=== PATIENT | male | born 1990 | race Caucasian/White ===

== ENCOUNTER 2022-01-25 10:43 | Inpatient (IN) | payer SELFPAY ==
[2022-01-25] VITALS (16 sets, daily range): BP systolic 100–122; BP diastolic 56–73; PULSE 86–119; RESP 14–20; TEMP 36.1–39.4; O2SAT 96–100; BMI 25.5; BMI 24.9
--- NOTE | 2022-01-25 10:50 | DI.RAD.S_ITS ---
PROCEDURE: XR CHEST 1V INDICATIONS: suspected sepsis TECHNIQUE: One view of the chest was acquired. COMPARISON: None. FINDINGS: Surgical changes and devices: None. Lungs and pleura: Lungs are clear. No pleural effusions or pneumothorax. Mediastinum: Mediastinal contours appear normal. Heart size is normal. Bones and chest wall: No suspicious bony lesions. Overlying soft tissues appear unremarkable. IMPRESSION: No acute cardiopulmonary pathology. Dictated by: Tapan Minor M.D. on 01/25/2022 at 12:14 Approved by: Tapan Minor M.D. on 01/25/2022 at 12:18
[2022-01-25] MEDS: SODIUM CHLORIDE 0.9% 1,000 ML 1000 ML IV (11:07)
[2022-01-25 11:31] LABS: Add Manual Diff / Slide Review NO; Basophils Absolute Auto 0 /uL (0-100); Basophils Percent Auto 0.2 % (0-2); Eosinophils Absolute Auto 0 /uL (0-450); Hematocrit 41.7 % (41-53); Hemoglobin 14.3 g/dL (13.5-17.5); Lymphocytes Absolute Auto 500 /uL (1100-4500); Lymphocytes Percent Auto 2.8 % (25-40); Mean Corpuscular HGB Conc 34.4 % (30-36); Mean Corpuscular Hemoglobin 29.2 PG (26-34); Mean Corpuscular Volume 84.8 fL (80-100); Monocytes Absolute Auto 1000 /uL (0-900); Monocytes Percent Auto 6.3 % (3-14); Neutrophils Absolute Auto 14800 /uL (1500-7000); Neutrophils Percent Auto 90.7 % (50-75); Platelet Count 222 X10^3/uL (150-400); Red Blood Cell Count 4.91 X10^6/uL (4.5-5.9); Red Cell Distribution Width 13.1 % (11.6-14.8); White Blood Cell Count 16.3 X10^3/uL (4.5-11.0)
--- NOTE | 2022-01-25 11:35 | ED_ITS ---
HPI - Abdominal Pain General Chief Complaint: Abdominal Pain Stated Complaint: Abd pain- sent by [facility] Time Seen by Provider: 01/25/22 11:03 Source: patient Mode of arrival: Ambulatory History of Present Illness HPI narrative: Patient is a 31-year-old healthy male who presents with 3 days of abdominal pain. States that his is temperature has been high and low he is currently febrile. Pain is not really localized she said it started high and then has been low. He went to a walk-in clinic initially he thought he had a ruptured appendix and sent here for further evaluation. He according to walk-in records he had significant rebound tenderness patient says that the right over did not hurt. He has had decreased appetite no real nausea or vomiting. Currently noted to be febrile tachycardic. Related Data Home Medications Medication Instructions Recorded Confirmed MULTIVITAMIN (DAILY MULTIPLE 1 tab PO Q DAY ##0 11/26/10 01/25/22 VITAMINS) Allergies Allergy/AdvReac Type Severity Reaction Status Date / Time amoxicillin Allergy Unknown Verified 01/25/22 15:13 Review of Systems Review of Systems Narrative: GENERAL: + fever HEENT: Denies sinus pain, ear pain, sore throat, difficulty swallowing, neck pain RESPIRATORY: Denies dyspnea, cough, wheezing, hemoptysis, sputum. CARDIOVASCULAR: Denies chest pain, palpitations, orthopnea, edema GASTROINTESTINAL: See HPI : Denies dysuria, frequency, incontinence, hematuria, urinary retention, flank pain. MUSCULOSKELETAL: Denies weakness, joint pain, or bony pain SKIN: No rash, no erythema, no pruritus NEUROLOGIC: Denies weakness, dizziness, headache, numbness, change in speech, confusion PSYCHIATRIC: No concerning psychosocial issues. 12 point review of systems is negative except for those stated above and HPI Patient History Social History household members: significant other Smoking Status: Current every day smoker alcohol intake: current Smoking Status: Current every day smoker alcohol intake frequency: holidays/special occasions only Substance Use Type: does not use Exam Initial Vital Signs Initial Vital Signs: Vital Signs Temperature 102.2 F H 01/25/22 10:48 Pulse Rate 119 H 01/25/22 10:48 Respiratory Rate 18 01/25/22 10:48 Blood Pressure 122/73 01/25/22 10:48 Pulse Oximetry 99 01/25/22 10:48 Oxygen Delivery Method 01/25/22 10:48 GENERAL: Alert 31-year-old HEENT: Head atraumatic,EOMI, pupils reactive, face symmetric, dry mucous membrane CARDIOVASCULAR: Regular rate and rhythm without murmurs, rubs or gallops. RESPIRATORY: Breath sounds equal bilaterally, no wheezes rales or rhonchi. ABDOMEN: Soft, tender all cough lower abdomen minimal rebound EXTREMITIES: Normal range of motion, no clubbing or edema. Neurovascularly intact NEUROLOGICAL: Alert and oriented x4.Normal gait and speech. SKIN: Warm, dry, no laceration, no petechiae, no rashes or lesions. Course Orders Ordered: ED Orders 01/25/22 10:50 XR chest 1V Stat RT Consult Eval and Treat NOW 01/25/22 11:09 COVID19 -Nasal RAPID/Pre-Proc Stat 01/25/22 11:29 Complete Blood Count AUTO DIFF Stat Comprehensive Metabolic Panel Stat Lactate (Lactic Acid) Stat Lipase Stat Procalcitonin Stat 01/25/22 11:35 CT abdomen pelvis w con Stat Blood Culture Stat 01/25/22 14:00 Education, smoking cessation ONGOING 01/26/22 05:00 Complete Blood Count AUTO DIFF DAILY Acetaminophen (Acetaminophen 325 Mg Tablet) 650 mg PO Q6HR ANETTE Gabapentin (Gabapentin 300 Mg Capsule) 300 mg PO Q8HR ANETTE Dextrose/Lactated Ringer's (Dextrose 5%-Lactated Ringers) 1,000 mls @ 120 mls/hr IV CONT ANETTE Last Admin: 01/25/22 16:03 Dose: 120 mls/hr Documented By: AM Ceftriaxone Sodium 1,000 mg/ (Sodium Chloride) 100 mls @ 200 mls/hr IV DAILY ANETTE Metronidazole (Flagyl) 500 mg in 100 mls @ 100 mls/hr IV NOW ONE Stop: 01/25/22 21:59 Ketorolac Tromethamine (Ketorolac 30 Mg/Ml Vial) 30 mg IV Q6H ANETTE Stop: 01/28/22 13:59 Ondansetron HCl (Ondansetron 4 Mg/2 Ml Inj) 4 mg IV Q6HR ANETTE Oxycodone HCl (Oxycodone Ir 5 Mg Tablet) 5 mg PO Q4HR PRN PRN Reason: Pain, Severe (7-10) Discontinued Medications Acetaminophen (Acetaminophen 325 Mg Tablet) 975 mg PO NOW ONE Stop: 01/25/22 13:22 Last Admin: 01/25/22 13:59 Dose: 975 mg Documented By: KILO Sodium Chloride (Normal Saline 0.9%) 1,000 mls @ 1,000 mls/hr IV BOLUS ONE Stop: 01/25/22 11:49 Last Infusion: 01/25/22 13:53 Dose: 0 mls/hr Documented By: [facility] Admin: 01/25/22 11:07 Dose: 1,000 mls/hr Documented By: KILO Ceftazidime 2 gm/ Sodium (Chloride) 100 mls @ 100 mls/hr IV NOW ONE Stop: 01/25/22 11:37 Last Infusion: 01/25/22 13:19 Dose: 0 mls/hr Documented By: Admin: 01/25/22 11:43 Dose: 100 mls/hr Documented By: KILO Metronidazole (Flagyl) 500 mg in 100 mls @ 100 mls/hr IV NOW ONE Stop: 01/25/22 12:35 Last Infusion: 01/25/22 13:19 Dose: 0 mls/hr Documented By: Admin: 01/25/22 11:43 Dose: 100 mls/hr Documented By: KILO Ketorolac Tromethamine (Ketorolac 30 Mg/Ml Vial) 30 mg IV NOW ONE Stop: 01/25/22 11:36 Last Admin: 01/25/22 11:43 Dose: 30 mg Documented By: KILO Vital Signs Vital signs: Vital Signs - 8 hr 01/25/22 10:48 01/25/22 12:04 01/25/22 13:11 Temperature 102.2 F H 103 F H Pulse Rate 119 H 103 H Respiratory Rate 18 18 Blood Pressure 122/73 Pulse Oximetry 99 99 Oxygen Delivery Method Room Air 01/25/22 12:08 01/25/22 12:08 01/25/22 12:30 Temperature Pulse Rate 102 H 106 H Respiratory Rate Blood Pressure 122/62 Pulse Oximetry 99 97 Oxygen Delivery Method 01/25/22 13:00 01/25/22 13:08 01/25/22 13:09 Temperature Pulse Rate 102 H 105 H Respiratory Rate Blood Pressure 117/64 Pulse Oximetry 97 97 Oxygen Delivery Method 01/25/22 13:09 01/25/22 13:30 01/25/22 13:30 Temperature Pulse Rate 105 H 105 H Respiratory Rate Blood Pressure 119/60 Pulse Oximetry 97 100 Oxygen Delivery Method 01/25/22 13:59 01/25/22 14:00 01/25/22 14:00 Temperature 103 F H Pulse Rate 101 H Respiratory Rate Blood Pressure 119/57 L Pulse Oximetry 99 Oxygen Delivery Method MDM - Abdominal Pain Lab Data Result diagrams: 01/25/22 11:29 01/25/22 11:29 Labs: Lab Results 01/25/22 01/25/22 01/25/22 Range/Units 11:09 11:29 11:29 WBC 16.3 H (4.5-11.0) X10^3/uL RBC 4.91 (4.5-5.9) X10^6/uL Hgb 14.3 (13.5-17.5) g/dL Hct 41.7 (41-53) % MCV 84.8 (80-100) fL MCH 29.2 (26-34) PG MCHC 34.4 (30-36) % RDW 13.1 (11.6-14.8) % Plt Count 222 (150-400) X10^3/uL Neut % (Auto) 90.7 H (50-75) % Lymph % (Auto) 2.8 L (25-40) % [place] % (Auto) 6.3 (3-14) % Eos % (Auto) 0.0 L (2-4) % Baso % (Auto) 0.2 (0-2) % Neut # (Auto) 53801 H (0637-4176) /uL Lymph # (Auto) 500 L (8678-7533) /uL [place] # (Auto) 1000 H (0-900) /uL Eos # (Auto) 0 (0-450) /uL Baso # (Auto) 0 (0-100) /uL Sodium 138 (137-145) mmol/L Potassium 3.9 (3.4-5.1) mmol/L Chloride 98 (98-107) mmol/L Carbon Dioxide 26 (22-32) mmol/L BUN 12 (9-20) mg/dL Creatinine 0.90 (0.66-1.25) mg/dL Estimated GFR > 60 (>60) mL/min BUN/Creatinine Ratio 13.3 (6-22) Glucose 128 H (70-100) mg/dL Lactate (0.7-2.1) mmol/L Calcium 9.3 (8.4-10.2) mg/dL Total Bilirubin 1.1 (0.2-1.3) mg/dL AST 22 (17-59) IU/L ALT 27 (<50) IU/L Alkaline Phosphatase 61 (38-126) U/L Total Protein 8.4 H (6.3-8.2) g/dL Albumin 4.7 (3.5-5.0) g/dL Globulin 3.7 (1.7-4.1) g/dL Albumin/Globulin Ratio 1.3 (1.0-2.8) Lipase 28 (23-300) U/L Procalcitonin 0.16 (<0.5) ng/mL SARS-CoV-2 (PCR) Negative (Negative) 01/25/22 Range/Units 11:29 WBC (4.5-11.0) X10^3/uL RBC (4.5-5.9) X10^6/uL Hgb (13.5-17.5) g/dL Hct (41-53) % MCV (80-100) fL MCH (26-34) PG MCHC (30-36) % RDW (11.6-14.8) % Plt Count (150-400) X10^3/uL Neut % (Auto) (50-75) % Lymph % (Auto) (25-40) % [place] % (Auto) (3-14) % Eos % (Auto) (2-4) % Baso % (Auto) (0-2) % Neut # (Auto) (6060-5180) /uL Lymph # (Auto) (0573-2529) /uL [place] # (Auto) (0-900) /uL Eos # (Auto) (0-450) /uL Baso # (Auto) (0-100) /uL Sodium (137-145) mmol/L Potassium (3.4-5.1) mmol/L Chloride (98-107) mmol/L Carbon Dioxide (22-32) mmol/L BUN (9-20) mg/dL Creatinine (0.66-1.25) mg/dL Estimated GFR (>60) mL/min BUN/Creatinine Ratio (6-22) Glucose (70-100) mg/dL Lactate 1.9 (0.7-2.1) mmol/L Calcium (8.4-10.2) mg/dL Total Bilirubin (0.2-1.3) mg/dL AST (17-59) IU/L ALT (<50) IU/L Alkaline Phosphatase (38-126) U/L Total Protein (6.3-8.2) g/dL Albumin (3.5-5.0) g/dL Globulin (1.7-4.1) g/dL Albumin/Globulin Ratio (1.0-2.8) Lipase (23-300) U/L Procalcitonin (<0.5) ng/mL SARS-CoV-2 (PCR) (Negative) Imaging Data CT scan - abdomen/pelvis: Radiologist's Impression: CT Scan Report Signed Patient: Sam Godwin MR#: [id number] : 1990 Acct:[id number] Age/Sex: 31 / M Date of Service: 01/25/22 Loc: ED Accession Number: [id number] ?? Procedure: CT abdomen pelvis w con Ordering Provider: Marjorie Omer D.O. PROCEDURE:? CT ABDOMEN PELVIS W CON ? INDICATIONS:? severe pain febrile lower quadrant buklateral ? TECHNIQUE:? After the administration of intravenous contrast, axial sections acquired from the lung bases to the pubic symphysis.? Coronal and sagittal reformats were performed.? For radiation dose reduction, the following was used:? automated exposure control, adjustment of mA and/or kV according to patient size.? ? COMPARISON:? None. ? FINDINGS:? Image quality:? Excellent.? ? Lung bases:? Clear lung bases.? No hiatal hernia.? ? Heart:? Normal size heart without pericardial effusion. ? ABDOMEN: Liver:? No masses Gallbladder:? Normal wall thickness. Biliary ducts:? Nondilated. Pancreas:? Normal. Spleen:? Normal size. Adrenal Glands:? No nodules. Kidneys and Ureters:? Normal enhancement.? No hydronephrosis or hydroureter.? No calcifications. ? Stomach and Bowel:? There are a few calcifications in the expected location of the appendix.? The appendiceal gaston are not well-defined.? There is extensive periappendiceal inflammation.? There is circumferential wall thickening and mural edema involving adjacent loops of small bowel and sigmoid colon.? Several more proximal small bowel loops are slightly prominent suggesting ileus. Peritoneum:? There is a small amount of free fluid in the pelvis and layering in the right lateral pericolic gutter.? Node defined fluid collections.? No extraluminal gas. ? Ventral Wall: ? No hernias.? Abdominal Nodes:? There are several moderately prominent mesenteric lymph nodes, mainly in the right lower quadrant mesentery as well as numerous retroperitoneal lymph nodes at and above the upper limits of normal. Vessels:? Aorta and inferior vena cava are normal in size.? ? PELVIS: Pelvic Organs:? Normal size prostate gland. Bladder:? Normal urinary bladder wall thickness. Pelvic Nodes: No enlarged lymph nodes.? Miscellaneous: No hernias are seen. ? ? ? Bones:? Unremarkable.? IMPRESSION:? ? 1. Findings of acute, perforated appendicitis with adjacent reactive colitis , adenitis and ileus. ? 2. Numerous reactive mesenteric and retroperitoneal lymph nodes. ? 3. Discussed with Dr. Omer in the emergency room at 12:46 hours.? ? .? ? Dictated by: Shanon Dalton M.D. on 01/25/2022 at 12:40 ? ? Approved by: Shanon Dalton M.D. on 01/25/2022 at 12:48 ? Chest x-ray: Radiologist's Impression: XRay Report Signed Patient: Sam Godwin MR#: [id number] : 1990 Acct:[id number] Age/Sex: 31 / M Date of Service: 01/25/22 Loc: ED Accession Number: [id number] ?? Procedure: XR chest 1V Ordering Provider: Marjorie Omer D.O. PROCEDURE:? XR CHEST 1V ? INDICATIONS:? suspected sepsis ? TECHNIQUE:? One view of the chest was acquired.? ? COMPARISON:? None. ? FINDINGS:? ? Surgical changes and devices:? None.? ? Lungs and pleura:? Lungs are clear.? No pleural effusions or pneumothorax.? ? Mediastinum:? Mediastinal contours appear normal.? Heart size is normal.? ? Bones and chest wall:? No suspicious bony lesions.? Overlying soft tissues appear unremarkable.? ? IMPRESSION:? No acute cardiopulmonary pathology. ? ? Dictated by: Tapan Minor M.D. on 01/25/2022 at 12:14 ? ? [facility] Narrative Medical decision making narrative: The patient is hand be tachycardic febrile with abdominal pain. CT confirms ruptured appendicitis. He has mild leukocytosis. He is given ceftazidime and Flagyl. Dr. Gutierrez, surgery has been updated patient's symptoms test results and agrees for admission. Discharge Plan Departure Patient Disposition: Admitted As Inpatient Clinical Impression: Rupture of appendix Admit Date/Time: 01/25/22 14:00 Admit Provider: Sandie Gutierrez
--- NOTE | 2022-01-25 11:35 | DI.CT.S_ITS ---
PROCEDURE: CT ABDOMEN PELVIS W CON INDICATIONS: severe pain febrile lower quadrant buklateral TECHNIQUE: After the administration of intravenous contrast, axial sections acquired from the lung bases to the pubic symphysis. Coronal and sagittal reformats were performed. For radiation dose reduction, the following was used: automated exposure control, adjustment of mA and/or kV according to patient size. COMPARISON: None. FINDINGS: Image quality: Excellent. Lung bases: Clear lung bases. No hiatal hernia. Heart: Normal size heart without pericardial effusion. ABDOMEN: Liver: No masses Gallbladder: Normal wall thickness. Biliary ducts: Nondilated. Pancreas: Normal. Spleen: Normal size. Adrenal Glands: No nodules. Kidneys and Ureters: Normal enhancement. No hydronephrosis or hydroureter. No calcifications. Stomach and Bowel: There are a few calcifications in the expected location of the appendix. The appendiceal gaston are not well-defined. There is extensive periappendiceal inflammation. There is circumferential wall thickening and mural edema involving adjacent loops of small bowel and sigmoid colon. Several more proximal small bowel loops are slightly prominent suggesting ileus. Peritoneum: There is a small amount of free fluid in the pelvis and layering in the right lateral pericolic gutter. Node defined fluid collections. No extraluminal gas. Ventral Wall: No hernias. Abdominal Nodes: There are several moderately prominent mesenteric lymph nodes, mainly in the right lower quadrant mesentery as well as numerous retroperitoneal lymph nodes at and above the upper limits of normal. Vessels: Aorta and inferior vena cava are normal in size. PELVIS: Pelvic Organs: Normal size prostate gland. Bladder: Normal urinary bladder wall thickness. Pelvic Nodes: No enlarged lymph nodes. Miscellaneous: No hernias are seen. Bones: Unremarkable. IMPRESSION: 1. Findings of acute, perforated appendicitis with adjacent reactive colitis , adenitis and ileus. 2. Numerous reactive mesenteric and retroperitoneal lymph nodes. 3. Discussed with Dr. Omer in the emergency room at 12:46 hours. . Dictated by: Shanon Dalton M.D. on 01/25/2022 at 12:40 Approved by: Shanon Dalton M.D. on 01/25/2022 at 12:48
[2022-01-25 11:42] LABS: COVID19 -Nasal RAPID Negative (Negative)
[2022-01-25] MEDS: KETOROLAC 30 MG/ML VIAL IV ×3 (11:43→20:21)
[2022-01-25] MEDS: metroNIDAZOLE 500 MG/100 ML PIGGYBACK 100 MG IV ×2 (11:43→20:21)
[2022-01-25 11:44] LABS: Lactate (Lactic Acid) 1.9 mmol/L (0.7-2.1)
[2022-01-25 11:45] LABS: Alanine Aminotransferase 27 IU/L (<50); Albumin 4.7 g/dL (3.5-5.0); Albumin Globulin Ratio 1.3 (1.0-2.8); Alkaline Phosphatase 61 U/L (38-126); Aspartate Aminotransferase 22 IU/L (17-59); BUN Creatinine Ratio 13.3 (6-22); Bilirubin Total 1.1 mg/dL (0.2-1.3); Blood Urea Nitrogen 12 mg/dL (9-20); Calcium 9.3 mg/dL (8.4-10.2); Carbon Dioxide 26 mmol/L (22-32); Chloride 98 mmol/L (98-107); Estimated Glomerular Filt Rate > 60 mL/min (>60); Globulin 3.7 g/dL (1.7-4.1); Glucose 128 mg/dL (70-100); HEMOLYSIS < 15 (0-50); Lipase 28 U/L (23-300); Potassium 3.9 mmol/L (3.4-5.1); Sodium 138 mmol/L (137-145); Total Protein 8.4 g/dL (6.3-8.2)
[2022-01-25 12:01] LABS: Procalcitonin 0.16 ng/mL (<0.5)
[2022-01-25] MEDS: ACETAMINOPHEN 325 MG TABLET 975 MG PO (13:59)
[2022-01-25] MEDS: DEXTROSE 5%-LACTATED RINGERS 1,000 ML 120 ML IV (16:03)
[2022-01-25] MEDS: ACETAMINOPHEN 325 MG TABLET 650 MG PO (23:19)
[2022-01-25] MEDS: OXYCODONE IR 5 MG TABLET PO (23:19)
[2022-01-26] VITALS: BP 114/68; PULSE 80; RESP 18; TEMP 37.2; O2SAT 96
[2022-01-26 05:00] VITALS: BP 120/65; PULSE 100; RESP 18; TEMP 38.9; O2SAT 100
[2022-01-26] MEDS: ACETAMINOPHEN 325 MG TABLET 650 MG PO ×4 (05:26→23:27)
[2022-01-26 05:50] LABS: Add Manual Diff / Slide Review NO; Basophils Absolute Auto 0 /uL (0-100); Basophils Percent Auto 0.3 % (0-2); Eosinophils Absolute Auto 100 /uL (0-450); Eosinophils Percent Auto 0.5 % (2-4); Hemoglobin 13.5 g/dL (13.5-17.5); Lymphocytes Absolute Auto 900 /uL (1100-4500); Lymphocytes Percent Auto 6.5 % (25-40); Mean Corpuscular HGB Conc 34.6 % (30-36); Mean Corpuscular Hemoglobin 29.8 PG (26-34); Mean Corpuscular Volume 86.2 fL (80-100); Monocytes Absolute Auto 1000 /uL (0-900); Monocytes Percent Auto 7.4 % (3-14); Neutrophils Absolute Auto 11300 /uL (1500-7000); Neutrophils Percent Auto 85.3 % (50-75); Platelet Count 170 X10^3/uL (150-400); Red Blood Cell Count 4.52 X10^6/uL (4.5-5.9); Red Cell Distribution Width 13.7 % (11.6-14.8); White Blood Cell Count 13.3 X10^3/uL (4.5-11.0)
--- NOTE | 2022-01-26 09:25 | CM.DANOTE ---
DCP: Case received, EMR reviewed and met with patient. Introduced self and role. Was able to obtain some history from patient. DCP assessment completed with information currently available. Patient is a 31 year old male who admitted yesterday afternoon to the care of the hospitalist/surgical team. PCP: None (Goes to [id number] in [place] for acute needs). Payer: confirmed: None (Katelynn application was given). Patient came to the hospital via private vehicle secondary to having abdominal pain for the lat 3 days. Patient had gone to the [id number] in [place] and was diagnosed with ruptured appendix. Patient was sent here for evaluation. Patient is here for IV ABO, and surgery consult. Met with patient in his room. He is alert and oriented, and was sitting up in bed. Confirmed with patient that he resides in [place], and is employed at [employer] He currently has no insurance, they do not have insurance at his employment, he was given a katelynn application from admission counselors. He has no primary provider, he goes to the walk in on [facility] for any urgent needs. Patient indicated, they are not going to be doing surgery, he had spoken to the doctor already. He will continue with IV ABO, and is being put on clear liquid diet. P: DCP to continue to follow. Plan is home when medically stable. Adrienne Diaz RN/Folder Operator Discharge Planning/Care Management CM Discharge Assessment Start: 01/26/22 09:23 Freq: Status: Active Protocol: Document 01/26/22 09:24 (Rec: 01/26/22 09:25 [id number]) Discharge Planning Assessment Assigned Branch Credit Counselor Adrienne Diaz RN/Folder Operator Advance Directives? No History Provided By Patient,Medical Record Household Members significant other Type of transporation used prior to Drives own vehicle admit Independent with ADL's Yes Is patient alert and oriented? Yes Caregiver for Another No Barriers to Discharge No Comment Patient does not have primary provider, uses walk in clinic in [place], and has no medical insurance. Discharge Plan Home Transportation Arrangement Family or self Referrals Initiated None needed Whiteboard Updated in Patient Room with Yes name and ext. # of Branch Credit Counselor Review Status In Process Next Review Type Continued Stay Review
[2022-01-26] MEDS: KETOROLAC 30 MG/ML VIAL IV ×2 (09:29→16:17)
[2022-01-26] MEDS: cefTRIAXone 1,000 MG in SODIUM CHLORIDE 0.9% 100 ML 200 MG IV (09:29)
--- NOTE | 2022-01-26 10:05 | PM.HP.1 ---
History of Present Illness History of Present Illness Date Patient Seen: 01/26/22 Time Patient Seen: 10:05 Chief complaint: Abd pain- sent by [facility] Narrative: Three days of abdominal pain with diarrhea, fever and anorexia. CT scan confirms ruptured appendicitis with associated inflammation of surrounding small bowel and colon. no abscess. +phlegmon. No cough. Pain is localizing to RLQ and sharp intermittently, no radiation. No previous episodes. Patient History Family & Social History Social History: household members significant other Safety & Behavioral: Feels Safe in Current Yes Environment Been Physically Hurt or No Threatened By a Person Tobacco & Substance use: Tobacco type cigarettes Smoking Status Current every day smoker alcohol intake current alcohol intake frequency holiday/special occasion Substance Use Type does not use Meds Home Medications and Allergies Home Medications Medication Instructions Recorded Confirmed Type MULTIVITAMIN (DAILY MULTIPLE 1 tab PO Q DAY ##0 11/26/10 01/25/22 History VITAMINS) Allergies Allergy/AdvReac Type Severity Reaction Status Date / Time amoxicillin Allergy Unknown Verified 01/25/22 15:13 Review of Systems Review of Systems ROS: Yes All systems reviewed with the patient and are negative except as otherwise documented Exam Vital Signs (past 8 hours): - 01/26/22 05:00 Temperature 102.0 F H Pulse Rate 100 H Respiratory Rate 18 Blood Pressure 120/65 Pulse Oximetry 100 Oxygen Flow Rate 0 Oxygen Delivery Method Room Air Oxygen Flow Rate 0 Const General: cooperative and healthy appearing Nutritional Appearance: average body habitus Orientation: alert, awake and oriented x3 HENPA Head: normal to inspection, normocephalic and atraumatic Eyes General: appearance normal, both eyes and all related structures Sclera: sclerae normal Neck Neck: trachea midline Chest Chest: normal inspection of the chest Resp Effort & Inspection: normal respiratory effort and able to speak in complete sentences Cardio Rate: tachycardic Rhythm: regular rhythm GI Inspection: normal to inspection Palpation: soft and tender (tender to palpation greatest in RLQ) Skin General: no rashes or lesions noted and turgor normal Neuro General: patient alert, patient awake and patient oriented x3 Cognition: normal cognition Extrem General: full ROM Psych Appearance: grossly normal Judgment: judgment good Objective Labs Result Diagrams: 01/26/22 05:24 01/25/22 11:29 Labs: Laboratory Results - last 24 hr 01/25/22 01/25/22 01/25/22 11:09 11:29 11:29 WBC 16.3 H RBC 4.91 Hgb 14.3 Hct 41.7 MCV 84.8 MCH 29.2 MCHC 34.4 RDW 13.1 Plt Count 222 Neut % (Auto) 90.7 H Lymph % (Auto) 2.8 L [place] % (Auto) 6.3 Eos % (Auto) 0.0 L Baso % (Auto) 0.2 Neut # (Auto) 78957 H Lymph # (Auto) 500 L [place] # (Auto) 1000 H Eos # (Auto) 0 Baso # (Auto) 0 Sodium 138 Potassium 3.9 Chloride 98 Carbon Dioxide 26 BUN 12 Creatinine 0.90 Estimated GFR > 60 BUN/Creatinine Ratio 13.3 Glucose 128 H Lactate Calcium 9.3 Total Bilirubin 1.1 AST 22 ALT 27 Alkaline Phosphatase 61 Total Protein 8.4 H Albumin 4.7 Globulin 3.7 Albumin/Globulin Ratio 1.3 Lipase 28 Procalcitonin 0.16 SARS-CoV-2 (PCR) Negative 01/25/22 01/26/22 11:29 05:24 WBC 13.3 H RBC 4.52 Hgb 13.5 Hct 39.0 L MCV 86.2 MCH 29.8 MCHC 34.6 RDW 13.7 Plt Count 170 Neut % (Auto) 85.3 H Lymph % (Auto) 6.5 L [place] % (Auto) 7.4 Eos % (Auto) 0.5 L Baso % (Auto) 0.3 Neut # (Auto) 91010 H Lymph # (Auto) 900 L [place] # (Auto) 1000 H Eos # (Auto) 100 Baso # (Auto) 0 Sodium Potassium Chloride Carbon Dioxide BUN Creatinine Estimated GFR BUN/Creatinine Ratio Glucose Lactate 1.9 Calcium Total Bilirubin AST ALT Alkaline Phosphatase Total Protein Albumin Globulin Albumin/Globulin Ratio Lipase Procalcitonin SARS-CoV-2 (PCR) Assessment & Plan Assessment & Plan narrative: Ruptured appendicitis. Plan: IV antibiotics and re evaluate in am. COVID-19 COVID-19 status: Negative Time Spent With Patient Critical Care time: I spent a total of [] minutes of critical care time on this patient's care today; this time is exclusive of procedural time. Quality VTE Deep Vein Thrombosis/Pulmonary Embolism Present on Admission: No
--- NOTE | 2022-01-26 11:10 | PC.NURSE ---
Pt tolerating pain well with toradol. Understands the plan for today. Partner at bedside and plans on walking around unit later.
[2022-01-26 11:52] VITALS: BP 113/60; PULSE 87; RESP 18; TEMP 36.8; O2SAT 99
[2022-01-26 15:53] VITALS: BMI 24.9
[2022-01-26] MEDS: GABAPENTIN 300 MG CAPSULE PO ×2 (16:17→20:30)
[2022-01-26 17:29] VITALS: BP 120/68; PULSE 86; RESP 18; TEMP 36.5; O2SAT 99
--- NOTE | 2022-01-26 18:21 | PC.NURSE ---
Pt and partner have stated concerned about plan of care. RN reassured pt and explained best to ability that we are trying antibx and anti-inflammatory meds to reduce swelling as surgeon is unable even see appendix on scan. pt is verbally expressing anxiety about 5 year old child, paying for medical bills w/o insurance. After reassurance and explanation, pt seemed less anxious. RN told pt and spouse we will call when comes in the morning to see him.
[2022-01-26] MEDS: CELECOXIB 200 MG CAPSULE PO (20:30)
[2022-01-26] MEDS: DEXTROSE 5%-LACTATED RINGERS 1,000 ML 120 ML IV (20:33)
[2022-01-27] VITALS: BP 111/74; PULSE 84; RESP 16; TEMP 37; O2SAT 98
--- NOTE | 2022-01-27 03:03 | PC.NURSE ---
Pt is AxOx4, independent and cooperative. VSS, pt c/o abd pain and scheduled Tylenol is helping for his pain. Pt also feels very anxious about the whole situation and quite teary when I was talking to him. Pt slept well all night. No other changes.
[2022-01-27] MEDS: ACETAMINOPHEN 325 MG TABLET 650 MG PO ×2 (05:24→10:46)
[2022-01-27] MEDS: DEXTROSE 5%-LACTATED RINGERS 1,000 ML 120 ML IV (05:25)
[2022-01-27] MEDS: GABAPENTIN 300 MG CAPSULE PO (05:25)
[2022-01-27 06:00] VITALS: BP 119/65; PULSE 84; RESP 18; TEMP 37.1; O2SAT 98
[2022-01-27 08:46] LABS: Add Manual Diff / Slide Review NO; Basophils Absolute Auto 0 /uL (0-100); Basophils Percent Auto 0.3 % (0-2); Eosinophils Absolute Auto 300 /uL (0-450); Eosinophils Percent Auto 3.2 % (2-4); Hematocrit 35.1 % (41-53); Lymphocytes Absolute Auto 800 /uL (1100-4500); Lymphocytes Percent Auto 7.1 % (25-40); Mean Corpuscular HGB Conc 34.3 % (30-36); Mean Corpuscular Hemoglobin 29.5 PG (26-34); Mean Corpuscular Volume 86.1 fL (80-100); Monocytes Absolute Auto 800 /uL (0-900); Neutrophils Absolute Auto 9000 /uL (1500-7000); Neutrophils Percent Auto 82.4 % (50-75); Platelet Count 200 X10^3/uL (150-400); Red Blood Cell Count 4.08 X10^6/uL (4.5-5.9); Red Cell Distribution Width 13.4 % (11.6-14.8); White Blood Cell Count 10.9 X10^3/uL (4.5-11.0)
--- NOTE | 2022-01-27 09:22 | PM.PN.1 ---
Subjective Subjective Date Patient Seen: 01/27/22 Time Patient Seen: 09:22 Interval history: Responded to antibiotics, minimal pain, no fever. WBC normal. Exam Vital Signs (past 8 hours): - 01/27/22 06:00 Temperature 98.8 F Pulse Rate 84 Respiratory Rate 18 Blood Pressure 119/65 Pulse Oximetry 98 Oxygen Flow Rate 0 Oxygen Delivery Method Room Air Oxygen Flow Rate 0 Narrative Exam Narrative: abdomen is soft with minimal tenderness to palpation. fullness in RLQ Const General: cooperative Nutritional Appearance: average body habitus Objective Labs Result Diagrams: 01/27/22 08:35 01/25/22 11:29 Labs: Laboratory Results - last 24 hr 01/27/22 08:35 WBC 10.9 RBC 4.08 L Hgb 12.0 L Hct 35.1 L MCV 86.1 MCH 29.5 MCHC 34.3 RDW 13.4 Plt Count 200 Neut % (Auto) 82.4 H Lymph % (Auto) 7.1 L [place] % (Auto) 7.0 Eos % (Auto) 3.2 Baso % (Auto) 0.3 Neut # (Auto) 9000 H Lymph # (Auto) 800 L [place] # (Auto) 800 Eos # (Auto) 300 Baso # (Auto) 0 PFSH Social History household members: significant other Smoking Status: Current every day smoker alcohol intake: current Assessment & Plan Assessment & Plan narrative: Switch to Augmentin and discharge home Follow up [place] [facility] 6 weeks for eval of interval appendectomy COVID-19 COVID-19 status: Negative Time Spent With Patient Critical Care time: I spent a total of [] minutes of critical care time on this patient's care today; this time is exclusive of procedural time. Quality VTE Deep Vein Thrombosis/Pulmonary Embolism Present on Admission: No
[2022-01-27] MEDS: CELECOXIB 200 MG CAPSULE PO (10:46)
[2022-01-27] MEDS: AMOXICILLIN/CLAV 875/125 MG 1 TAB PO (10:46)
--- NOTE | 2022-01-27 11:54 | CM.DPC ---
DCP Cont: Patient has discharge orders today. Met with patient for his concerns are not having medical insurance. His significant other has the [facility] application, and encouraged him to complete it and to contact the billing office tomorrow for a possible payment plan. P: Patient is discharging home today with no needs. Adrienne Diaz RN/[employer] Consultant
--- NOTE | 2022-01-27 12:59 | PC.NURSE ---
Discharge Note Patient A&O, VSS, RA, no complaints of pain/discomfort. Discharge packet reviewed with patient, all questions/concerns addressed. Prescriptions sent to preferred pharmacy for pick-up tomorrow. PIV discontinued. Patient able to dress self and pack all belongings. Patient escorted downstairs to [facility].
== END 2022-01-27 12:50 | disposition home or self-care (01) | DRG 373 ==
LOC: ED 13:21 → AC 14:01
PROVIDERS: Admitting Provider Surgery; Emergency Provider Emergency Medicine; Referring Provider Emergency Medicine; Visit Provider Surgery
DX: K35.32 Acute appendicitis with perforation, localized peritonitis, and gangrene, without abscess (principal); F17.210 Nicotine dependence, cigarettes, uncomplicated; Z20.822 Contact with and (suspected) exposure to COVID-19
CPT/HCPCS: 36415; 71045; 74177; 80053; 83605; 83690; 84145; 85025; 87040; 87635; 96365; 96366; 96375; 99221; 99238; 99284; C9803; J0696; J0713; J1885; J7121; Q9967

== ENCOUNTER → 2022-03-21 09:38 | Outpatient (CLI) | payer SELFPAY ==
[2022-03-21 11:03] LABS: Add Manual Diff / Slide Review NO; Basophils Absolute Auto 100 /uL (0-100); Basophils Percent Auto 1.5 % (0-2); Eosinophils Absolute Auto 200 /uL (0-450); Eosinophils Percent Auto 4.4 % (2-4); Hematocrit 40.3 % (41-53); Hemoglobin 13.8 g/dL (13.5-17.5); Lymphocytes Absolute Auto 2000 /uL (1100-4500); Lymphocytes Percent Auto 45.7 % (25-40); Mean Corpuscular HGB Conc 34.1 % (30-36); Mean Corpuscular Hemoglobin 28.9 PG (26-34); Mean Corpuscular Volume 84.8 fL (80-100); Monocytes Absolute Auto 500 /uL (0-900); Monocytes Percent Auto 10.4 % (3-14); Neutrophils Absolute Auto 1700 /uL (1500-7000); Platelet Count 253 X10^3/uL (150-400); Red Blood Cell Count 4.76 X10^6/uL (4.5-5.9); Red Cell Distribution Width 14.4 % (11.6-14.8); White Blood Cell Count 4.5 X10^3/uL (4.5-11.0)
== END ==
PROVIDERS: Referring Provider Surgery; Visit Provider Surgery
DX: K35.32 Acute appendicitis with perforation, localized peritonitis, and gangrene, without abscess (principal)
CPT/HCPCS: 36415; 85025